=== PATIENT | female | born 2000 | race Caucasian/White ===

== ENCOUNTER 2019-01-01 14:28 | Emergency (ER) | payer OTHER ==
[~2019-01-01] VITALS: Ht 152.4 cm; Wt 59.0 kg
== END 2019-01-01 18:57 | disposition home or self-care (01) ==
LOC: ER 14:28
DX: R00.2 Palpitations (principal); F06.4 Anxiety disorder due to known physiological condition

== ENCOUNTER 2020-12-23 01:31 | Emergency (ER) | payer OTHER ==
[~2020-12-23] VITALS: Ht 149.9 cm; Wt 61.2 kg
[2020-12-23] MEDS ORDERED: PEPCID AC10 MG (01:46)
[2020-12-23] MEDS ORDERED: XYZAL5 MG (01:46)
[2020-12-23] MEDS ORDERED: [UNRECOGNIZED DRUG - REMARK] (01:47)
[2020-12-23] MEDS ORDERED: ZOFRAN4 MG SL (05:59)
== END 2020-12-23 06:11 ==
LOC: ER 01:31
DX: K29.60 Other gastritis without bleeding (principal)

== ENCOUNTER 2022-09-17 19:49 | Emergency (ER) | payer OTHER ==
[~2022-09-17] VITALS: Ht 149.9 cm; Wt 65.8 kg
[~2022-09-17 19:49] MED LIST: PEPCID AC10 MG; XYZAL5 MG; ZOFRAN4 MG SL; [UNRECOGNIZED DRUG - REMARK]
[2022-09-17] MEDS ORDERED: PROPRANOLOL HCL10 MG PO (20:46)
[2022-09-17] MEDS ORDERED: LEVOTHYROXINE25 MCG PO (20:47)
== END 2022-09-18 00:20 | disposition home or self-care (01) ==
LOC: ER 19:49
DX: R00.2 Palpitations (principal); Z88.6 Allergy status to analgesic agent; Z91.012 Allergy to eggs